=== PATIENT | female | born 1975 | race Caucasian/White ===

== ENCOUNTER 2017-06-19 14:09 | Emergency (ER) | payer MEDICAID ==
[~2017-06-19] VITALS: Ht 165.1 cm; Wt 68.0 kg
--- NOTE | 2017-06-19 15:20 | NUR ---
PT TAKEN TO CT
[2017-06-19] MEDS ORDERED: DIAZEPAM 5 MG TABLET ONE (15:29)
[2017-06-19] MEDS ORDERED: ACETAMINOPHEN ES 500 MG TABLET ONE (15:29)
[2017-06-19] MEDS ORDERED: IBUPROFEN 600 MG TABLET PO ONE ×2 (15:30)
[2017-06-19] MEDS ORDERED: DIAZEPAM 5 MG TABLET PO ONE (15:30)
[2017-06-19] MEDS ORDERED: ACETAMINOPHEN 325 MG TABLET PO ONE (15:30)
[2017-06-19 15:33] VITALS: BP 134/85
--- NOTE | 2017-06-19 16:11 | NUR ---
Patient discharged to home in stable condition. Written and verbal after care instructions given. Patient verbalizes understanding of instruction.
== END 2017-06-19 16:13 | disposition home or self-care (01) ==
LOC: ER 14:15
DX: S16.1XXA Strain of muscle, fascia and tendon at neck level, initial encounter (principal); S39.012A Strain of muscle, fascia and tendon of lower back, initial encounter; M62.830 Muscle spasm of back; L23.89 Allergic contact dermatitis due to other agents; L55.9 Sunburn, unspecified; M47.892 Other spondylosis, cervical region; G89.29 Other chronic pain; V43.62XA Car passenger injured in collision with other type car in traffic accident, initial encounter; Y93.89 Activity, other specified; Y92.413 State road as the place of occurrence of the external cause; Y99.8 Other external cause status
CPT/HCPCS: 72125-TC; A4606; L0172; Z7610

== ENCOUNTER 2021-12-04 19:33 | Emergency (ER) | payer MEDICAID, OTHER ==
[~2021-12-04] VITALS: Ht 167.6 cm; Wt 61.2 kg
[2021-12-04 19:56] VITALS: BP 138/82
--- NOTE | 2021-12-04 19:56 | NUR ---
Patient discharged to home in stable condition. Written and verbal after care instructions given. Patient verbalizes understanding of instruction.
== END 2021-12-04 19:58 ==
LOC: ER 19:54
DX: Z02.89 Encounter for other administrative examinations (principal); I10 Essential (primary) hypertension; G89.29 Other chronic pain